=== PATIENT | male | born 2000 | race Caucasian/White ===

== ENCOUNTER 2020-10-02 08:57 | Inpatient (IN) | payer OTHER ==
[~2020-10-02] VITALS: Ht 175.3 cm; Wt 81.6 kg
[2020-10-02] MEDS ORDERED: ETOMIDATE 2MG/ML 10ML VIAL IV ONE (09:30)
[2020-10-02] MEDS ORDERED: SUCCINYLCHOLINE CHLORIDE 200MG/10ML IV ONE (09:30)
[2020-10-02 09:42] LABS: BASOPHILS % 0.3 % (0.0-2.0); EOSINOPHILS % 0.2 % (0.0-5.0); HEMATOCRIT. 53.2 % (42.0-52.0); HEMOGLOBIN. 17.1 g/dL (14.0-18.0); LYMPHOCYTES % 11.6 % (20.0-50.0); MEAN CORPUSCULAR VOLUME 93.6 fL (80.0-94.0); MONOCYTES % 2.4 % (2.0-8.0); NEUTROPHILS % 85.5 % (40.0-76.0); PLATELET 379 x1000/uL (130-400); RED BLOOD CELL COUNT 5.68 mill/uL (4.7-6.1); RED CELL DISTRIBUTION WIDTH 15.3 % (11.6-14.6)
[2020-10-02] MEDS ORDERED: PROPOFOL 10MG/ML 100ML 100 ML IV ONE (09:45)
[2020-10-02] MEDS ORDERED: FENTANYL CITRATE/PF 50MCG/ML 2ML VIAL IV ONE (09:45)
[2020-10-02 09:50] LABS: CHLORIDE 101 mEq/L (98-107)
[2020-10-02] MEDS ORDERED: FENTANYL CITRATE/PF 500 MCG in SODIUM CHLORIDE 0.9% 40 ML IV PRN (10:00)
[2020-10-02] MEDS ORDERED: FENTANYL CITRATE 2,500 MCG in SODIUM CHLORIDE 0.9% 200 ML IV PRN (10:15)
[2020-10-02 10:18] LABS: BG BASE EXCESS -4.1 mmol/L (-2.0-2.0); BG CARBOXYHEMOGLOBIN 0.1 % (0.5-1.5); BG DEOXYHEMOGLOBIN 7.5 % (0.0-5.0); BG FRACTION INSPIRED OXYGEN 100; BG HCO3 ACT 22.9 mmol/L (22.0-26.0); BG METHEMOGLOBIN 0.3 % (0.0-1.5); BG OXYGEN SATURATION 92.5 % (92.0-98.5); BG OXYHEMOGLOBIN 92.1 % (94.0-97.0); BG PCO2 48.2 mmHg (35.0-45.0); BG PH 7.294 (7.350-7.450); BG SAMPLE SITE RIGHT RADIAL; BG TOTAL HEMOGLOBIN 17.2 g/dL (12.0-18.0); BG VENT MODE VENT - AC
[2020-10-02] MEDS ORDERED: KETOROLAC 15MG/ML VIAL IV PRN (10:45)
[2020-10-02] MEDS ORDERED: DOCUSATE SODIUM 100MG CAPSULE PO PRN (10:45)
[2020-10-02] MEDS ORDERED: CLONIDINE 0.1MG TABLET PO PRN (10:45)
[2020-10-02] MEDS ORDERED: GUAIFENESIN 200MG/10ML SUGAR FREE UDC PO PRN (10:45)
[2020-10-02] MEDS ORDERED: MAGNESIUM/ALUMINUM HYDROXIDE/SIMETHICONE 30ML UDC PO PRN (10:45)
[2020-10-02] MEDS ORDERED: IPRATROPIUM/ALBUTEROL 0.5-3(2.5)MG/3ML NEB NEB PRN (10:45)
[2020-10-02] MEDS ORDERED: ONDANSETRON HCL 4MG/2ML INJ IV PRN (10:45)
[2020-10-02 10:58] LABS: ETHANOL BLOOD < 10 mg/dL
[2020-10-02 11:00] LABS: TOTAL IRON BINDING CAPACITY 470 ug/dL (250-450)
[2020-10-02 11:03] LABS: T4 FREE 1.08 ng/dL (0.76-1.46)
[2020-10-02 11:11] LABS: METHADONE URINE SCREEN NEGATIVE (NEGATIVE)
[2020-10-02 11:12] LABS: *BARBITURATES SCREEN URINE NEGATIVE (NEGATIVE); *BENZODIAZEPINES SCREEN URINE NEGATIVE (NEGATIVE); *COCAINE SCREEN URINE NEGATIVE (NEGATIVE); CANNABINOID URINE SCREEN NEGATIVE (NEGATIVE); PHENCYCLIDINE URINE SCREEN NEGATIVE (NEGATIVE)
[2020-10-02 11:13] LABS: *AMPHETAMINES SCREEN URINE NEGATIVE (NEGATIVE); OPIATES URINE SCREEN PRESUMTIVE POSITIVE (NEGATIVE)
[2020-10-02 11:15] LABS: FOLIC ACID (FOLATE) SERUM >20 ng/mL ng/mL (>5.38)
[2020-10-02 11:27] LABS: VITAMIN B12 SERUM 314 pg/mL (211-911)
[2020-10-02] MEDS ORDERED: PIPERACILLIN/TAZ 3.375G PREMIX 50 ML IV SCH (12:00)
[2020-10-02] MEDS: ENOXAPARIN 40MG/0.4ML SYR SUBCUT SCH (12:00)
[2020-10-02] MEDS: DILTIAZEM HCL 60MG TABLET PO SCH (12:00)
[2020-10-02] MEDS: DEXT 5%/LACTATED RINGERS 1,000 ML IV SCH (12:30)
[2020-10-02] MEDS ORDERED: PROPOFOL 10MG/ML 100ML 100 ML IV SCH (13:00)
[2020-10-02] MEDS ORDERED: VANCOMYCIN 1500MG in DEXTROSE 5% WATER 250ML IV SCH (13:00)
[2020-10-02] MEDS ORDERED: MIDAZOLAM HCL 100 MG in SODIUM CHLORIDE 0.9% 100 ML IV PRN (14:30)
[2020-10-02 22:00] VITALS: BP_SYST 101; BP_SYST 102; BP_DIAS 62; BP_DIAS 64
[2020-10-02 22:30] VITALS: BP 108/60
[2020-10-02 22:46] LABS: BG BASE EXCESS -2.6 mmol/L (-2.0-2.0); BG CARBOXYHEMOGLOBIN 0.5 % (0.5-1.5); BG DEOXYHEMOGLOBIN 0.4 % (0.0-5.0); BG FRACTION INSPIRED OXYGEN 100; BG HCO3 ACT 23.2 mmol/L (22.0-26.0); BG METHEMOGLOBIN 0.5 % (0.0-1.5); BG OXYGEN SATURATION 99.6 % (92.0-98.5); BG OXYHEMOGLOBIN 98.6 % (94.0-97.0); BG PCO2 43.6 mmHg (35.0-45.0); BG PH 7.344 (7.350-7.450); BG PO2 255.2 mmHg (75.0-100.0); BG SAMPLE SITE RIGHT RADIAL; BG TOTAL HEMOGLOBIN 16.1 g/dL (12.0-18.0); BG VENT MODE VENT - AC
[2020-10-02 23:00] VITALS: BP 107/64
[2020-10-02] MEDS: VANCOMYCIN 1 G PREMIX 200 ML IV SCH (23:16)
[2020-10-02] MEDS: PIPERACILLIN/TAZOBACTAM 3.375 G in DEXT 5% WATER 100 ML IV SCH (23:17)
[2020-10-02] MEDS: IPRATROPIUM/ALBUTEROL 0.5-3(2.5)MG/3ML NEB HHN SCH (23:57)
[2020-10-03] VITALS (75 sets, daily range): BP systolic 93–126; BP diastolic 39–77
[2020-10-03] MEDS ORDERED: MIDAZOLAM HCL 100 MG in SODIUM CHLORIDE 0.9% 80 ML IV PRN
[2020-10-03] MEDS ORDERED: FENTANYL CITRATE/PF 2,500 MCG in SODIUM CHLORIDE 0.9% 200 ML IV PRN
[2020-10-03] MEDS: DEXT 5%/LACTATED RINGERS 1,000 ML IV SCH ×2 (00:05→14:27)
[2020-10-03] MEDS: IPRATROPIUM/ALBUTEROL 0.5-3(2.5)MG/3ML NEB HHN SCH ×5 (03:57→20:00)
[2020-10-03 05:53] LABS: CHLORIDE 105 mEq/L (98-107)
[2020-10-03 06:01] LABS: PHOSPHORUS 3.6 mg/dL (2.5-4.9)
[2020-10-03 06:02] LABS: HEMATOCRIT. 43.8 % (42.0-52.0); HEMOGLOBIN. 14.2 g/dL (14.0-18.0); MEAN CORPUSCULAR HEMOGLOBIN 29.8 pg (28.0-32.0); MEAN CORPUSCULAR VOLUME 91.8 fL (80.0-94.0); MEAN PLATELET VOLUME 8.3 fl (7.4-10.4); PLATELET 250 x1000/uL (130-400); RED BLOOD CELL COUNT 4.77 mill/uL (4.7-6.1); RED CELL DISTRIBUTION WIDTH 15.6 % (11.6-14.6)
[2020-10-03] MEDS: PIPERACILLIN/TAZOBACTAM 3.375 G in DEXT 5% WATER 100 ML IV SCH ×4 (06:48→22:05)
[2020-10-03] MEDS ORDERED: SODIUM CHLORIDE 0.9% 1,000 ML IV ONE (09:00)
[2020-10-03] MEDS ORDERED: NOREPINEPHRINE 32 MG in DEXT 5% WATER 218 ML IV PRN (09:00)
[2020-10-03] MEDS: ENOXAPARIN 40MG/0.4ML SYR SUBCUT SCH (09:06)
[2020-10-03] MEDS: PANTOPRAZOLE SODIUM 40 MG/VIAL IV SCH (09:06)
[2020-10-03] MEDS: ACETAMINOPHEN 325MG TABLET PO PRN (09:07)
[2020-10-03 09:52] LABS: BG BASE EXCESS -0.4 mmol/L (-2.0-2.0); BG CARBOXYHEMOGLOBIN 0.1 % (0.5-1.5); BG DEOXYHEMOGLOBIN 1.7 % (0.0-5.0); BG FRACTION INSPIRED OXYGEN 65; BG HCO3 ACT 23.4 mmol/L (22.0-26.0); BG METHEMOGLOBIN 0.3 % (0.0-1.5); BG OXYGEN SATURATION 98.3 % (92.0-98.5); BG OXYHEMOGLOBIN 97.9 % (94.0-97.0); BG PCO2 36.1 mmHg (35.0-45.0); BG PO2 117.5 mmHg (75.0-100.0); BG SAMPLE SITE RIGHT RADIAL; BG TOTAL HEMOGLOBIN 14.3 g/dL (12.0-18.0); BG VENT MODE VENT - AC
[2020-10-03 09:52] LABS: PLATELET ESTIMATE NORMAL
[2020-10-03] MEDS: DILTIAZEM HCL 60MG TABLET PO SCH ×2 (11:40→18:00)
[2020-10-03] MEDS ORDERED: FUROSEMIDE 40MG/4ML VIAL IVP NR (13:45)
[2020-10-03] MEDS: VANCOMYCIN 1 G PREMIX 200 ML IV SCH ×4 (15:00→22:05)
[2020-10-03] MEDS: PROPOFOL 10MG/ML 100ML 100 ML IV PRN ×2 (15:05→22:06)
[2020-10-04] VITALS (70 sets, daily range): BP systolic 84–162; BP diastolic 25–111
[2020-10-04] MEDS: IPRATROPIUM/ALBUTEROL 0.5-3(2.5)MG/3ML NEB HHN SCH ×6 (00:02→20:30)
[2020-10-04] MEDS: DEXT 5%/LACTATED RINGERS 1,000 ML IV SCH ×2 (00:24→15:29)
[2020-10-04] MEDS: ACETAMINOPHEN 325MG TABLET PO PRN ×2 (00:24→17:23)
[2020-10-04] MEDS: PIPERACILLIN/TAZOBACTAM 3.375 G in DEXT 5% WATER 100 ML IV SCH ×4 (05:44→23:19)
[2020-10-04] MEDS: PROPOFOL 10MG/ML 100ML 100 ML IV PRN (05:49)
[2020-10-04] MEDS: DILTIAZEM HCL 60MG TABLET PO SCH ×4 (05:49→17:21)
[2020-10-04 06:01] LABS: BASOPHILS % 0.2 % (0.0-2.0); EOSINOPHILS % 1.6 % (0.0-5.0); HEMOGLOBIN. 12.8 g/dL (14.0-18.0); LYMPHOCYTES % 9.8 % (20.0-50.0); MEAN CORPUSCULAR HEMOGLOBIN 30.1 pg (28.0-32.0); MEAN CORPUSCULAR VOLUME 91.3 fL (80.0-94.0); MEAN PLATELET VOLUME 8.5 fl (7.4-10.4); MONOCYTES % 5.9 % (2.0-8.0); NEUTROPHILS % 82.5 % (40.0-76.0); PLATELET 236 x1000/uL (130-400); RED BLOOD CELL COUNT 4.27 mill/uL (4.7-6.1); RED CELL DISTRIBUTION WIDTH 15.7 % (11.6-14.6)
[2020-10-04 06:05] LABS: CHLORIDE 106 mEq/L (98-107)
[2020-10-04] MEDS: VANCOMYCIN 1 G PREMIX 200 ML IV SCH (06:24)
[2020-10-04 08:18] LABS: BG BASE EXCESS 2.8 mmol/L (-2.0-2.0); BG CARBOXYHEMOGLOBIN 0.3 % (0.5-1.5); BG DEOXYHEMOGLOBIN 0.9 % (0.0-5.0); BG FRACTION INSPIRED OXYGEN 50; BG HCO3 ACT 25.8 mmol/L (22.0-26.0); BG METHEMOGLOBIN 0.3 % (0.0-1.5); BG OXYGEN SATURATION 99.1 % (92.0-98.5); BG OXYHEMOGLOBIN 98.5 % (94.0-97.0); BG PCO2 34.2 mmHg (35.0-45.0); BG PH 7.495 (7.350-7.450); BG SAMPLE SITE RIGHT RADIAL; BG TOTAL RESPIRATORY RATE 24 b/min; BG VENT MODE VENT - AC
[2020-10-04] MEDS: PANTOPRAZOLE SODIUM 40 MG/VIAL IV SCH (09:00)
[2020-10-04] MEDS: ENOXAPARIN 40MG/0.4ML SYR SUBCUT SCH (09:28)
[2020-10-04] MEDS ORDERED: HALOPERIDOL LACTATE 5MG/ML VIAL IM NR (11:15)
[2020-10-04] MEDS ORDERED: HALOPERIDOL LACTATE 5MG/ML VIAL IM PRN (12:15)
[2020-10-04] MEDS ORDERED: KCL 20MEQ/100ML PREMIX 100 ML IV NR (14:30)
[2020-10-04] MEDS: VANCOMYCIN 750 MG PREMIX 150 ML IV SCH (15:30)
[2020-10-05] VITALS (29 sets, daily range): BP systolic 83–170; BP diastolic 39–89
[2020-10-05] MEDS: VANCOMYCIN 750 MG PREMIX 150 ML IV SCH ×3 (00:49→15:21)
[2020-10-05] MEDS: DILTIAZEM HCL 60MG TABLET PO SCH ×4 (00:49→17:10)
[2020-10-05] MEDS: IPRATROPIUM/ALBUTEROL 0.5-3(2.5)MG/3ML NEB HHN SCH ×5 (04:00→20:26)
[2020-10-05] MEDS: PIPERACILLIN/TAZOBACTAM 3.375 G in DEXT 5% WATER 100 ML IV SCH ×4 (05:54→22:20)
[2020-10-05] MEDS: PANTOPRAZOLE SODIUM 40 MG/VIAL IV SCH (08:46)
[2020-10-05] MEDS: ENOXAPARIN 40MG/0.4ML SYR SUBCUT SCH (08:47)
[2020-10-05] MEDS: DEXT 5%/LACTATED RINGERS 1,000 ML IV SCH (18:45)
[2020-10-05] MEDS: ACETAMINOPHEN 325MG TABLET PO PRN (20:48)
[2020-10-06] VITALS: BP 116/74
[2020-10-06] MEDS: DILTIAZEM HCL 60MG TABLET PO SCH ×3 (00:24→11:50)
[2020-10-06] MEDS: VANCOMYCIN 750 MG PREMIX 150 ML IV SCH ×2 (00:24→09:07)
[2020-10-06] MEDS: IPRATROPIUM/ALBUTEROL 0.5-3(2.5)MG/3ML NEB HHN SCH ×3 (00:29→09:43)
[2020-10-06 04:00] VITALS: BP 110/65
[2020-10-06] MEDS: PIPERACILLIN/TAZOBACTAM 3.375 G in DEXT 5% WATER 100 ML IV SCH ×2 (05:24→11:00)
[2020-10-06] MEDS: ACETAMINOPHEN 325MG TABLET PO PRN (05:31)
[2020-10-06 07:14] LABS: BASOPHILS % 0.3 % (0.0-2.0); EOSINOPHILS % 3.1 % (0.0-5.0); HEMATOCRIT. 44.3 % (42.0-52.0); HEMOGLOBIN. 14.7 g/dL (14.0-18.0); LYMPHOCYTES % 20.5 % (20.0-50.0); MEAN CORPUSCULAR VOLUME 90.3 fL (80.0-94.0); MEAN PLATELET VOLUME 8.1 fl (7.4-10.4); MONOCYTES % 12.4 % (2.0-8.0); NEUTROPHILS % 63.7 % (40.0-76.0); PLATELET 331 x1000/uL (130-400); RED CELL DISTRIBUTION WIDTH 15.2 % (11.6-14.6)
[2020-10-06 07:15] LABS: CHLORIDE 105 mEq/L (98-107)
[2020-10-06 08:00] VITALS: BP 130/65
[2020-10-06] MEDS: PANTOPRAZOLE SODIUM 40 MG/VIAL IV SCH (09:07)
[2020-10-06] MEDS: ENOXAPARIN 40MG/0.4ML SYR SUBCUT SCH (09:09)
[2020-10-06] MEDS: DEXT 5%/LACTATED RINGERS 1,000 ML IV SCH (09:18)
[2020-10-06 11:41] VITALS: BP 113/70
[2020-10-06 12:00] VITALS: BP 113/70
== END 2020-10-06 12:18 | disposition home or self-care (01) | DRG 871 ==
LOC: ER 08:57 → MICUNO 10:22 → EDBEDREQTM 10:26 → EDBEDREQ 10:26 → ENRESERV 20:06 → 6EST 10-05 21:30
PROVIDERS: ADMIT Internal Medicine; ATTEND Internal Medicine
PROC: 5A1945Z Respiratory Ventilation, 24-96 Consecutive Hours (ICD-10-PCS; 2020-10-02)
PROC: 0BH17EZ Insertion of Endotracheal Airway into Trachea, Via Natural or Artificial Opening (ICD-10-PCS; 2020-10-02)
PROC: 02HV33Z Insertion of Infusion Device into Superior Vena Cava, Percutaneous Approach (ICD-10-PCS; principal; 2020-10-03)
PROC: B548ZZA Ultrasonography of Superior Vena Cava, Guidance (ICD-10-PCS; 2020-10-03)
DX: A41.9 Sepsis, unspecified organism (principal); J96.01 Acute respiratory failure with hypoxia; J69.0 Pneumonitis due to inhalation of food and vomit; G92 Toxic encephalopathy; T40.411A Poisoning by fentanyl or fentanyl analogs, accidental (unintentional), initial encounter; T40.1X1A Poisoning by heroin, accidental (unintentional), initial encounter; Z79.899 Other long term (current) drug therapy; Y92.89 Other specified places as the place of occurrence of the external cause
CPT/HCPCS: 36415; 36600; 71045; 76937; 80048; 80053; 80202; 80305; 80320; 82375; 82607; 82746; 82805; 83036; 83540; 83550; 83605; 83735; 84100; 84145; 84439; 84443; 84478; 85025; 87070; 93970; 94002; 94003; 94640; 99291; C1725; C9113; J0330; J1630; J1650; J1885; J1940; J2543; J2704; J3010; J3370; J3480; J3490; J7040; J7060; A4315; G0480

== ENCOUNTER 2020-11-30 13:52 | Emergency (ER) | payer MEDICAID, OTHER ==
[~2020-11-30] VITALS: Ht 175.3 cm; Wt 86.0 kg
[2020-11-30 16:51] LABS: CLARITY URINE CLEAR (CLEAR); COLOR URINE YELLOW (YELLOW); KETONES URINE NEGATIVE (NEGATIVE); LEUKOCYTE ESTERASE URINE NEGATIVE (NEGATIVE); NITRITE URINE NEGATIVE (NEGATIVE); OCCULT BLOOD URINE NEGATIVE (NEGATIVE); PH URINE 6.5 (4.5-8.0); PROTEIN URINE 2+ (NEGATIVE); SPECIFIC GRAVITY URINE 1.017 (1.005-1.030); UROBILINOGEN URINE 0.2 E.U./dL (0.2-1.0)
[2020-11-30 16:55] LABS: HEMATOCRIT. 45.7 % (42.0-52.0); MEAN CORPUSCULAR HEMOGLOBIN 31.1 pg (28.0-32.0); MEAN CORPUSCULAR VOLUME 88.9 fL (80.0-94.0); MEAN PLATELET VOLUME 8.2 fl (7.4-10.4); PLATELET 336 x1000/uL (130-400); RED BLOOD CELL COUNT 5.14 mill/uL (4.7-6.1); RED CELL DISTRIBUTION WIDTH 15.9 % (11.6-14.6)
[2020-11-30 16:58] LABS: CHLORIDE 107 mEq/L (98-107)
[2020-11-30 17:02] LABS: *AMPHETAMINES SCREEN URINE NEGATIVE (NEGATIVE); *BARBITURATES SCREEN URINE NEGATIVE (NEGATIVE); *BENZODIAZEPINES SCREEN URINE NEGATIVE (NEGATIVE); *COCAINE SCREEN URINE NEGATIVE (NEGATIVE); CANNABINOID URINE SCREEN PRESUMTIVE POSITIVE (NEGATIVE); METHADONE URINE SCREEN NEGATIVE (NEGATIVE); OPIATES URINE SCREEN PRESUMTIVE POSITIVE (NEGATIVE); PHENCYCLIDINE URINE SCREEN NEGATIVE (NEGATIVE)
[2020-11-30 17:02] LABS: ETHANOL BLOOD < 10 mg/dL
[2020-11-30 17:33] VITALS: BP 111/70
[2020-11-30 18:16] LABS: PLATELET ESTIMATE NORMAL
[2020-11-30] MEDS ORDERED: NALO4SPR BOTHNSTRLS (18:29)
== END 2020-11-30 18:50 | disposition home or self-care (01) ==
LOC: ER 13:52
DX: T40.411A Poisoning by fentanyl or fentanyl analogs, accidental (unintentional), initial encounter (principal); F11.129 Opioid abuse with intoxication, unspecified; R55 Syncope and collapse; Y92.012 Bathroom of single-family (private) house as the place of occurrence of the external cause
CPT/HCPCS: 36415; 80053; 80305; 80307; 80320; 80329; 81003; 85025; 99284; G0480

== ENCOUNTER 2021-09-12 14:39 | Emergency (ER) | payer MEDICAID, OTHER ==
[~2021-09-12] VITALS: Ht 172.7 cm; Wt 78.0 kg
[~2021-09-12 14:39] MED LIST: NALO4SPR BOTHNSTRLS
[2021-09-12] MEDS ORDERED: LIDOCAINE HCL/PF 1% 10 MG/ML 5ML VIAL INFIL ONE (15:15)
[2021-09-12] MEDS ORDERED: HYDROCODONE/ACETAMINOPHEN 5/325MG TABLET PO ONE (15:15)
[2021-09-12] MEDS ORDERED: TETANUS, DIPHTHERIA, PERTUSSIS VAC/PF 0.5ML (>10YR OLD) IM ONE (15:15)
[2021-09-12] MEDS ORDERED: LIDOCAINE HCL 1% 10 MG/ML 10ML VIAL IJ NR (16:00)
[2021-09-12] MEDS ORDERED: IBUP-2029 MT (16:58)
[2021-09-12] MEDS ORDERED: T3 PO (16:58)
[2021-09-12 17:50] VITALS: BP 118/74
== END 2021-09-12 17:53 | disposition home or self-care (01) ==
LOC: ER 14:39
DX: S01.01XA Laceration without foreign body of scalp, initial encounter (principal); Z98.890 Other specified postprocedural states; Y93.01 Activity, walking, marching and hiking; Y92.89 Other specified places as the place of occurrence of the external cause; Y99.8 Other external cause status
CPT/HCPCS: 12002; 70450; 70486; 72125; 90471; 90715; 99284; A4217; J3490; Z7610

== ENCOUNTER 2021-09-14 15:13 | Emergency (ER) | payer MEDICAID, OTHER ==
[~2021-09-14 15:13] MED LIST changes: +IBUP-2029 MT; +T3 PO
== END 2021-09-14 15:51 | disposition left against medical advice (07) ==
LOC: ER 15:13
DX: Z53.21 Procedure and treatment not carried out due to patient leaving prior to being seen by health care provider (principal)

== ENCOUNTER 2021-09-14 16:02 | Emergency (ER) | payer OTHER, MEDICAID ==
[~2021-09-14] VITALS: Ht 172.7 cm; Wt 86.0 kg
[2021-09-14 16:04] VITALS: BP 123/78
== END 2021-09-14 16:23 | disposition home or self-care (01) ==
LOC: ER 16:02
DX: S01.01XD Laceration without foreign body of scalp, subsequent encounter (principal); X58.XXXD Exposure to other specified factors, subsequent encounter
CPT/HCPCS: 99281

== ENCOUNTER 2021-09-25 19:33 | Emergency (ER) | payer OTHER, MEDICAID ==
[~2021-09-25] VITALS: Ht 172.7 cm; Wt 87.0 kg
[2021-09-25 19:37] VITALS: BP 143/89
== END 2021-09-25 21:18 | disposition left against medical advice (07) ==
LOC: ER 19:33
DX: Z53.21 Procedure and treatment not carried out due to patient leaving prior to being seen by health care provider (principal)

== ENCOUNTER 2021-09-27 16:40 | Emergency (ER) | payer OTHER, MEDICAID ==
[~2021-09-27] VITALS: Ht 172.7 cm; Wt 86.0 kg
[2021-09-27 16:53] VITALS: BP 118/66
== END 2021-09-27 17:11 | disposition home or self-care (01) ==
LOC: ER 16:40
DX: Z48.02 Encounter for removal of sutures (principal)
CPT/HCPCS: 99281

== ENCOUNTER 2022-01-28 04:04 | Emergency (ER) | payer OTHER, MEDICAID ==
[~2022-01-28] VITALS: Ht 175.3 cm; Wt 75.4 kg
[2022-01-28] MEDS ORDERED: TETANUS, DIPHTHERIA, PERTUSSIS VAC/PF 0.5ML (>10YR OLD) IM ONE (04:45)
[2022-01-28] MEDS ORDERED: ACETAMINOPHEN 325MG TABLET PO ONE (04:45)
[2022-01-28] MEDS ORDERED: IBUP-2029 MT (06:00)
[2022-01-28 06:10] VITALS: BP 112/75
== END 2022-01-28 06:11 | disposition home or self-care (01) ==
LOC: ER 04:04
DX: S01.01XA Laceration without foreign body of scalp, initial encounter (principal); F17.290 Nicotine dependence, other tobacco product, uncomplicated; F15.10 Other stimulant abuse, uncomplicated; W01.0XXA Fall on same level from slipping, tripping and stumbling without subsequent striking against object, initial encounter; Y93.89 Activity, other specified; Y92.89 Other specified places as the place of occurrence of the external cause; Y99.8 Other external cause status
CPT/HCPCS: 12002; 90471; 90715; 99283